=== PATIENT | male | born 1945 | race Caucasian/White ===

== ENCOUNTER → 2019-02-09 | Outpatient (CLI) | payer MEDICARE, OTHER ==
[~2019-02-09] MED LIST: ADVAIR 100-501 EACH INH; ALL DAY ALLERGY10 M1 PO; AMLODIPINE BESYL5 MG PO; ASPIR 8181 MG PO; FISH OIL300 MG PO; FLUNISOLIDE25 ML; GUIATUSS AC SY120 ML PO; IBUPROFEN200 MG PO; LEVAQUIN500 MG PO; LOSARTAN-HCTZ1 EAC2 PO; MONTELUKAST SOD10 MG PO; MUCINEX DM ER1 EACH PO; OMEPRAZOLE40 MG PO; POTASSIUM GLUCO99 M1 PO; PRAVASTATIN SOD40 MG PO; PREDNISONE5 MG PO; PULMICORT FLEXHA1 EA INH; SPIRIVA18 MCG INH; SUDAFED 12 HOU120 MG PO; TAMIFLU75 MG PO; TAMSULOSIN HCL0.4 MG PO; VITAMIN D31000 UNI1 PO
--- NOTE | 2019-02-09 12:05 | Diagnostic Imaging Report ---
Chest with contrast, 3 views Indication: Bronchitis Comparison: No chest radiograph comparisons available for review Findings: The heart is within normal limits. The mediastinal and hilar contours are unremarkable. A 5 mm calcified granuloma is identified in right lower lobe. There is no focal consolidation, sizable pleural effusion, or pneumothorax. No acute osseous abnormalities are identified. Impression: No radiographic evidence of acute cardiopulmonary process. Signed by: Gilbert Garnica MD on 02/09/2019 12:02 PM
== END ==
LOC: RAD 11:18
PROVIDERS: ATTEND Family Medicine
DX: J40 Bronchitis, not specified as acute or chronic (principal)
CPT/HCPCS: 71046